=== PATIENT | female | born 1990 | race Two or more races ===

== ENCOUNTER 2024-12-04 14:34 | Emergency (ER) | payer BC, OTHER ==
[~2024-12-04] VITALS: Ht 167.6 cm; Wt 65.2 kg
--- NOTE | 2024-12-04 15:38 | ED.PDOC ---
SLABBER HPI Comments 34-year-old female, with current approximate 10 week 1 day b rought in by family complaining of lower pelvic pain for the last 2 days, associated with nausea. She denies any vomiting, diarrhea, constipation or dysuria. She denies any vaginal bleeding or abnormal fluid discharge. Patient states she had a recent ultrasound that showed fetus single live intrauterine with positive heart tones. Chief Complaint: Pelvic Pain Time Seen by MD: 14:53 Reviewed Notes: Nurses Notes, Medications, Allergies Allergies: Coded Allergies: NO KNOWN ALLERGIES (Unverified , 12/04/24) Information Source: Patient Mode of Arrival: Ambulatory Timing: Hours Prehospital treatment: None Severity: Moderate Vaginal Discharge: None Vaginal Lesions: None Vaginal Mass: None Sexual Activity: Last Consensual Pillow: Unknown Blood Type: Unknown Symptoms of Possible : Missed Period, Nausea, Vomiting Associated Signs and Symptoms: Abdominal Pain, N/V, Cramping Past Medical History PAST MEDICAL HISTORY: Denies Past Medical History (Other): Surgical History: Denies all surgeries WILDLIFE PROTECTOR History: No Pertinent WILDLIFE PROTECTOR History 1 Para 0 Family History Family History: Reviewed,noncontributory to illness, Unknown Social History Smoker: Non-Smoker Alcohol: Denies ETOH Use Drugs: Denies Drug Use Lives In: Home All Other Systems: Reviewed and Negative (Comprehensive systems review obtained and negative except for what is stated in the HPI.) Physical Exam General Appearance: Mild Distress HEENT: PERRL/EOMI Neck: Full Range of Motion, Normal Inspection Respiratory: Lungs Clear, No Accessory Muscle Use, No Respiratory Distress, Normal Breath Sounds Cardiovascular: No Edema, No JVD, Regular Rate/Rhythm Breast Exam: Deferred Gastrointestinal: LLQ, Soft, Suprapubic, Tenderness Genitalia: Deferred Pelvic: Deferred Rectal: Deferred Extremities: Normal inspection, Normal range of motion, No pedal edema Neurologic: Alert (Oriented x4), Other (Tearful. Ambulatory. No gross focal deficit.) Cerebellar Function: NOT DONE Reflexes: NOT DONE Skin: Dry, Normal Color, Warm Lymphatic: NOT DONE Was a procedure done? Was a procedure done?: No Differential Diagnosis (WILDLIFE PROTECTOR) Vaginal Bleeding: - Complete, - Incomplete, - Inevitable, - Missed, - Threatened, Abruptio Placentae, PID, UTI X-Ray, Labs, Meds, VS Vital Signs Date Time Temp Pulse Resp B/P (MAP) Pulse Ox O2 Delivery O2 Flow Rate FiO2 12/04/24 15:46 77 18 98 Room Air 12/04/24 15:46 98.4 77 18 134/77 (96) 98 98.4 12/04/24 14:59 98.4 80 18 137/82 (100) 98 Lab Test 12/04/24 15:31 12/04/24 14:52 Range/Units White Blood Count 8.7 4.4-10.8 10^3/uL Red Blood Count 4.58 4.0-5.20 10^6/uL Hemoglobin 15.0 12.2-16.2 g/dL Hematocrit 43.5 36.0-46.0 % Mean Corpuscular Volume 95.0 80.0-100.0 fL Mean Corpuscular Hemoglobin 32.7 H 28.0-32.0 pg Mean Corpuscular Hemoglobin Concent 34.5 32.0-36.0 g/dL Red Cell Distribution Width 12.8 11.8-14.3 % Platelet Count 334 140-450 10^3/uL Mean Platelet Volume 7.4 6.9-10.8 fL Neutrophils (%) (Auto) 64.7 37.0-80.0 % Lymphocytes (%) (Auto) 25.0 10.0-50.0 % Monocytes (%) (Auto) 8.9 0.0-12.0 % Eosinophils (%) (Auto) 1.0 0.0-7.0 % Basophils (%) (Auto) 0.4 0.0-2.0 % Neutrophils # (Auto) 5.7 1.6-8.6 10 ^3/uL Lymphocytes # (Auto) 2.2 0.4-5.4 10 ^3/uL Monocytes # (Auto) 0.8 0-1.3 10 ^3/uL Eosinophils # (Auto) 0.1 0-0.8 10 ^3/uL Basophils # (Auto) 0 0-0.2 10 ^3/uL Nucleated Red Blood Cells 0.1 % Sodium Level 139 136-145 mmol/L Potassium Level 3.8 3.5-5.1 mmol/L Chloride Level 106 98-107 mmol/L Carbon Dioxide Level 27 20-31 mmol/L Anion Gap 6 5-15 Blood Urea Nitrogen 7 L 9-23 mg/dL Creatinine 0.72 0.550-1.02 mg/dL Glomerular Filtration Rate Calc 111 >90 mL/min BUN/Creatinine Ratio 9.7 L 10.0-20.0 Serum Glucose 94 74-106 mg/dL Calcium Level 9.8 8.7-10.4 mg/dL Beta HCG, Quantitative 29413.3 H 1.5-4.2 mIU/mL Urine Color Colorless Yellow Urine Clarity Clear Clear Urine pH 6.5 5.0-9.0 Urine Specific [place] 1.003 1.001-1.035 Urine Protein Negative Negative Urine Ketones Negative Negative Urine Blood 1+ H Negative /uL Urine Nitrite Negative Negative Urine Bilirubin Negative Negative Urine Urobilinogen Normal Negative mg/dL Urine Leukocyte Esterase Negative Negative /uL Urine RBC 1 0 - 4 /hpf Urine Microscopic WBC 1 0-5 /HPF Urine Squamous Epithelial Cells Few <5 /hpf Urine Bacteria Mod H None Seen /hpf Urine Glucose Normal Normal mg/dL PROCEDURE(s): OB4US - OB ULTRASOUND COMP LESS 14WKS REASON: pelvic pain ORDER NUMBER(s): [id number], ACCESSION NUMBER(s): [id number] OB ULTRASOUND <14 WEEKS: HISTORY: pelvic pain TECHNIQUE: Multiple real-time grayscale sonographic images of the pelvis with duplex Doppler color flow, spectral and M-mode analysis. TRANSDUCERS: COMPARISON: None FINDINGS: The uterus measures 9.9 x 5.5 x 6.1 cm The cervix Right ovary measures 3.5 x 1.9 x 2.80 cm with normal Doppler color flow. Left ovary not visualized. anechoic cystic structure in the right ovary measuring 1.3 x 1.0 cm No heart tones seen. the gestational sac measures 3.5 cm. [place]-rump length measures 1.2 cm. Yolk sac not visualized. Impression: No yolk sac visualized No heart tones visualized Findings raise the possibility of demise. Follow-up ultrasound recommended X-Ray, Labs, Meds, VS Comment 34-year-old female, with current approximate 10 week 1 day brought in by family complaining of lower pelvic pain for the last 2 days, associated with nausea Vitals unremarkable Exam remarkable for suprapubic and left-sided pelvic tenderness to palpation Rhythm strip independently interpreted by me: Sinus rhythm, rate 80, no ectopy. Ob ultrasound Impression: No yolk sac visualized No heart tones visualized Findings raise the possibility of demise. Follow-up ultrasound recommended CBC and basic metabolic panel unremarkable, UA positive for blood and moderate bacteria, serum quantitative hCG 28573.3 Patient treated with the following in the ED: Tylenol 1 g p.o., morphine 4 mg IM, Zofran ODT 4 mg p.o. On re-evaluation, patient stated pain had worsened despite p.o. Tylenol, so IM morphine was ordered. Vitals were stable. Case discussed with Dr. Rodas, who felt the patient was stable for discharge with close follow-up with her OBGYN. Patient advised regarding workup findings, my impression, treatment plan and follow-up recommendations. She expressed understanding and agreed. Rx [place], Zofran Time of 1ST Reevaluation: 15:23 Reevaluation 1ST: Unchanged Patient Education/Counseling: Diagnosis, Treatment, Prognosis Family Education/Counseling: No Family Present Departure 1 Departure Time of Disposition: 19:49 Impression: Primary Impression: demise Disposition: 01 HOME / SELF CARE / HOMELESS Condition: Stable Additional Instructions: Your blood tests were unremarkable. Your serum quantitative hCG was 91784.3 Your ultrasound did not show yolk sac or heart activity. The report is provided below. Follow-up with your OBGYN in 1-2 days. I have prescribed pain and nausea medication. Return to ER for uncontrolled pain, severe bleeding, or any other concern. [place] [id number] Ph: [phone] DIAGNOSTIC IMAGING Diagnostic Imaging Report : [id number] Signed PATIENT: LILLIAN THAPA ACCT: [id number] UNIT: [id number] : 1990 LOC: ER ROOM / BED: / AGE / SEX: 34 / F ADM STATUS: REG ER SERVICE [id number] ORDERING PHYSICIAN: GIGI PATRICK MD PROCEDURE(s): OB4US - OB ULTRASOUND COMP LESS 14WKS REASON: pelvic pain ORDER NUMBER(s): [id number], ACCESSION NUMBER(s): [id number] OB ULTRASOUND <14 WEEKS: HISTORY: pelvic pain TECHNIQUE: Multiple real-time grayscale sonographic images of the pelvis with duplex Doppler color flow, spectral and M-mode analysis. TRANSDUCERS: COMPARISON: None FINDINGS: The uterus measures 9.9 x 5.5 x 6.1 cm The cervix Right ovary measures 3.5 x 1.9 x 2.80 cm with normal Doppler color flow. Left ovary not visualized. anechoic cystic structure in the right ovary measuring 1.3 x 1.0 cm No heart tones seen. the gestational sac measures 3.5 cm. [place]-rump length measures 1.2 cm. Yolk sac not visualized. Impression: No yolk sac visualized No heart tones visualized Findings raise the possibility of demise. Follow-up ultrasound recommended ATED BY: KAREEM SPAIN MD DICTATED DATE/TIME: 12/04/24 1706 e-Prescriptions Ondansetron Odt 4MG Tab (ZOFRAN PO) 4 Mg Tb 4 MG PO TID PRN, #30 TAB prn n/v ODT TAB-DISSOLVE IN MOUTH, THEN SWALLOW Prov: GIGI PATRICK MD 12/04/24 Hydrocodone-Acetaminophen (Hydrocodone Bitartrate/AC 5-325 mg) 1 Tab Tab 1-2 TAB PO Q6HP PRN, #20 TAB prn pain Prov: GIGI PATRICK MD 12/04/24 Discharged With: Self Critical Care Note Critical Care Time?: No Stability Stability form required: No Heart Score Heart Score: Heart Score Response (Comments) Value History N/A 0 EKG N/A 0 Age N/A 0 Risk Factors N/A 0 Troponin N/A 0 Total 0 I personally scribed for GIGI PATRICK MD ([email or web address]) on 12/04/24 at 15:51. Electronically submitted by Asher Clarke ([email or web address]). GIGI PATRICK MD Dec 04, 2024 15:38
[2024-12-04 15:46] VITALS: BP 134/77; PULSE 77; RESP 18; TEMP 98.4; O2SAT 98
[2024-12-04 15:46] LABS: Basophils # (auto) 0 10 ^3/uL (0-0.2); Basophils % (auto) 0.4 % (0.0-2.0); Eosinophils # (auto) 0.1 10 ^3/uL (0-0.8); Hematocrit 43.5 % (36.0-46.0); Lymphocytes # (auto) 2.2 10 ^3/uL (0.4-5.4); Mean Corpuscular Hemoglobin 32.7 pg (28.0-32.0); Mean Corpuscular Hgb Conc. 34.5 g/dL (32.0-36.0); Monocytes # (auto) 0.8 10 ^3/uL (0-1.3); Monocytes % (auto) 8.9 % (0.0-12.0); Neutrophils # (auto) 5.7 10 ^3/uL (1.6-8.6); Neutrophils % (auto) 64.7 % (37.0-80.0); Nucleated Red Blood Cells % 0.1 %; Platelet Count (auto) 334 10^3/uL (140-450); Red Blood Cells 4.58 10^6/uL (4.0-5.20); Red Cell Distribution Width 12.8 % (11.8-14.3); White Blood Cell 8.7 10^3/uL (4.4-10.8)
[2024-12-04 15:49] LABS: Urine Bacteria MOD /hpf (None Seen); Urine Blood 1+ /uL (Negative); Urine Clarity Clear (Clear); Urine Color Colorless (Yellow); Urine Protein, UAD Negative (Negative); Urine Specific Gravity 1.003 (1.001-1.035); Urine Squamous Epithelial Cell FEW /hpf (<5); Urine Urobilinogen Normal (Negative); Urine WBC 1 /HPF (0-5); Urine pH 6.5 (5.0-9.0)
[2024-12-04 15:50] LABS: Chloride 106 mmol/L (98-107); Potassium 3.8 mmol/L (3.5-5.1); Sodium 139 mmol/L (136-145)
[2024-12-04 15:51] LABS: Anion Gap 6 (5-15); Carbon Dioxide 27 mmol/L (20-31)
[2024-12-04 15:52] LABS: Calcium 9.8 mg/dL (8.7-10.4)
[2024-12-04] MEDS: ACETAMINOPHEN 500 MG TAB or CAP PO ONE (15:52)
[2024-12-04 15:56] LABS: BUN/Creatinine Ratio 9.7 (10.0-20.0); Glucose 94 mg/dL (74-106)
[2024-12-04 15:57] LABS: Blood Urea Nitrogen 7 mg/dL (9-23)
--- NOTE | 2024-12-04 17:08 | DVH ---
OB ULTRASOUND <14 WEEKS: HISTORY: pelvic pain TECHNIQUE: Multiple real-time grayscale sonographic images of the pelvis with duplex Doppler color f low, spectral and M-mode analysis. TRANSDUCERS: COMPARISON: None FINDINGS: The uterus measures 9.9 x 5.5 x 6.1 cm The cervix Right ovary measures 3.5 x 1.9 x 2.80 cm with normal Doppler color flow. Left ovary not visualized. anechoic cystic structure in the right ovary measuring 1.3 x 1.0 cm No heart tones seen. the gestational sac measures 3.5 cm. [place]-rump length measures 1.2 cm. Yolk sac not visualized. Impression: No yolk sac visualized No heart tones visualized Findings raise the possibility of demise. Follow-up ultrasound recommended
[2024-12-04] MEDS ORDERED: MORPHINE SULFATE 4 MG/ML SYR/VIAL IM ONE (20:15)
[2024-12-04] MEDS ORDERED: ONDANSETRON ODT 4 MG TAB PO ONE (20:15)
[2024-12-04] MEDS ORDERED: HYDR-4902 PO (20:20)
[2024-12-04] MEDS ORDERED: ZOFR4T PO (20:20)
== END 2024-12-04 23:32 | disposition home or self-care (01) ==
LOC: ER 14:34
DX: O36.4XX0 Maternal care for intrauterine death, not applicable or unspecified (principal); Z3A.10 10 weeks gestation of pregnancy
CPT/HCPCS: 36415; 76801; 76817; 80048; 81001; 84702; 85025